=== PATIENT | male | born 1970 | race Caucasian/White ===

== ENCOUNTER 2018-08-15 10:57 | Emergency (ER) | payer OTHER ==
[~2018-08-15] VITALS: Ht 175.3 cm; Wt 108.9 kg
[~2018-08-15 10:57] MED LIST: AMBIEN 5 MG TABL5 M1; MIRALAX255 GM PO; PREVACID 30MG C30 M1 PO
[2018-08-15] MEDS ORDERED: NOHOMEMEDICATIONS (11:07)
[2018-08-15 11:30] LABS: URINE BILIRUBIN NEGATIVE (Negative); URINE BLOOD NEGATIVE (Negative); URINE CLARITY CLEAR; URINE COLOR YELLOW; URINE GLUCOSE-RANDOM NEGATIVE (Negative); URINE KETONES TRACE (Negative); URINE LEUKOCYTES-REFLEX NEGATIVE (Negative); URINE NITRITE-REFLEX NEGATIVE (Negative); URINE PROTEIN NEGATIVE (Negative); URINE SPECIFIC GRAVITY >= 1.030 (1.005-1.030); URINE UROBILINOGEN 0.2 E.U./dl (0.2-1.0)
[2018-08-15 11:35] LABS: ABSOLUTE EOSINOPHILS 0.1 thou/uL (0.0-0.7); ABSOLUTE LYMPHOCYTES 1.6 thou/uL (0.8-5.3); ABSOLUTE MONOCYTES 0.7 thou/uL (0.0-1.2); ABSOLUTE NEUTROPHILS 6.6 thou/uL (1.6-8.1); BASOPHILS 0.4 %; HEMATOCRIT 45.2 % (42.0-52.0); HEMOGLOBIN 15.6 gm/dL (14.0-18.0); LYMPHOCYTES 17.8 %; MCH 31.7 pg (26.0-34.0); MCHC 34.5 g/dL (28.0-37.0); MCV 91.9 fL (80.0-100.0); MONOCYTES 7.5 %; MPV 7.9 fl. (7.2-11.1); NUCLEATED RBCS 0 /100WBC; PLATELET COUNT* 189 thou/uL (150-400); POLYS 73.3 %; RBC 4.92 mil/uL (4.50-6.00); RDW-CV 12.7 % (10.5-14.5)
[2018-08-15 11:43] LABS: CALCIUM 8.9 mg/dL (8.5-10.1); CREATININE 0.8 mg/dL (0.6-1.3)
[2018-08-15 11:48] LABS: TOTAL BILIRUBIN 0.6 mg/dL (<0.1-1.0)
[2018-08-15] MEDS ORDERED: ZOFRAN ODT4 MG PO (14:51)
[2018-08-15] MEDS ORDERED: FLEXERIL PO (14:51)
[2018-08-15] MEDS ORDERED: NORCO 5-325 TA1 EACH PO (14:51)
[2018-08-15 15:01] VITALS: BP 114/77
== END 2018-08-15 15:03 | disposition home or self-care (01) ==
LOC: M.ERS 10:57
PROVIDERS: Physician Assistant Surgical
DX: S33.5XXA Sprain of ligaments of lumbar spine, initial encounter (principal); R10.9 Unspecified abdominal pain; X58.XXXA Exposure to other specified factors, initial encounter; Y93.89 Activity, other specified; Y92.89 Other specified places as the place of occurrence of the external cause; Y99.8 Other external cause status